=== PATIENT | female | born 1980 | race Hispanic/Latino ===

== ENCOUNTER 2016-11-27 14:29 | Emergency (ER) | payer SELFPAY ==
[2016-11-27] MEDS ORDERED: TORADOL IV ONE (15:48)
[2016-11-27 16:19] LABS: White Blood Count 20.7 K/mm3 (4.5-11.0)
[2016-11-27 16:20] LABS: Hematocrit 42.9 % (30.3-42.9); Hemoglobin 14.6 gm/dl (10.1-14.3); Mean Corpuscular HGB Conc 34 % (30-34); Mean Corpuscular Hemoglobin 30 pg (28-32); Mean Corpuscular Volume 87 fl (79-97); Platelet Count 294 K/mm3 (140-440); Red Blood Count 4.92 M/mm3 (3.65-5.03); Red Cell Distribution Width 12.7 % (13.2-15.2)
[2016-11-27 16:55] LABS: Basophils % (Manual) 0 % (0.0-1.8); Blastocytes % (Manual) 0 %; Eosinophils % (Manual) 0 % (0.0-4.3)
[2016-11-27 16:56] LABS: Anisocytosis Few; Diff Status Complete
[2016-11-27 17:21] LABS: Alanine Aminotransferase 45 units/L (7-56); Albumin 4.1 g/dL (3.9-5); Albumin/Globulin Ratio 1.2 %; Alkaline Phosphatase 117 units/L (35-129); Anion Gap 21 mmol/L; Blood Urea Nitrogen 6 mg/dL (7-17); Calcium 9.2 mg/dL (8.4-10.2); Carbon Dioxide 23 mmol/L (22-30); Chloride 97.4 mmol/L (98-107); Creatine Kinase 96 units/L (30-135); Glucose 145 mg/dL (65-100); Lipase 25 units/L (13-60); Potassium 3.8 mmol/L (3.6-5.0); Sodium 138 mmol/L (137-145); Total Protein 7.4 g/dL (6.3-8.2)
[2016-11-27 17:22] LABS: Creatine Kinase MB < 1.0 ng/mL (0.0-4.0)
[2016-11-27 19:56] LABS: Bacteria,Urine 1+ /HPF (Negative); Bilirubin,Urine NEG (Negative); Blood,Urine SM (Negative); Ketones,Urine NEG (Negative); Leukocyte Esterase,Urine SM (Negative); Mucus,Urine FEW /HPF; Nitrite,Urine NEG (Negative); Protein,Urine <15 mg/dL mg/dL (Negative); Urobilinogen,Urine < 2.0 mg/dL (<2.0); WBC,Urine < 1.0 /HPF (0.0-6.0)
[2016-11-27] MEDS ORDERED: DILAUDID IV ONE (20:59)
[2016-11-27] MEDS ORDERED: ROCEPHIN/NS 1 GM/50 ML 1 GM/50 ML BAG IV ONE (20:59)
[2016-11-27] MEDS ORDERED: NACL 0.9% 1000 ML 2,000 ML IV ONE (20:59)
[2016-11-27] MEDS ORDERED: TYLENOL PO ONE (21:00)
--- NOTE | 2016-11-27 21:01 | Emergency Department Report ---
ED General Adult HPI - General Chief complaint: Abdominal Pain Stated complaint: BACK/KIDNEY PAIN Time Seen by Provider: 11/27/16 20:51 Source: patient, RN notes reviewed Mode of arrival: Ambulatory Limitations: No Limitations - History of Present Illness Initial comments: This is a 36-year-old female. She is previously unknown to me. She does not have a local primary care doctor. Past history includes cholecystectomy and nephrolithiasis. She does not have a private urologist specialist. The patient presents to the ER complaining of lower back pain, and flank pain, positive fever at home, no nausea or vomiting, mild dysuria, mild sensation of incomplete voiding. There is no bladder or bowel retention or incontinence. There is no saddle anesthesia. There is no IV drug use. The pain is constant. It worsens with palpation. It decreases with rest. -: Gradual Location: back Radiation: extremity Severity scale (0 -10): 8 Quality: aching Consistency: constant Improves with: rest Worsens with: movement Associated Symptoms: fever/chills, loss of appetite, malaise, weakness - Related Data Previous Rx's Medication Instructions Recorded Last Taken Type Omeprazole [Prilosec] 20 mg PO QDAY #30 capsule. 03/25/13 Unknown Rx Dicyclomine [Bentyl] 10 mg PO QID PRN #20 capsule 11/27/16 Unknown Rx Levofloxacin [Levaquin TAB] 500 mg PO BID #10 tablet 11/27/16 Unknown Rx Metoclopramide [Reglan] 10 mg PO QID PRN #30 tablet 11/27/16 Unknown Rx metroNIDAZOLE [Flagyl] 500 mg PO Q8HR #15 tablet 11/27/16 Unknown Rx Allergies Allergy/AdvReac Type Severity Reaction Status Date / Time No Known Allergies Allergy Unverified 03/24/13 21:53 ED Review of Systems ROS: Stated complaint: BACK/KIDNEY PAIN Other details as noted in HPI Constitutional: malaise Eyes: denies: vision change ENT: denies: epistaxis Respiratory: denies: cough Cardiovascular: denies: chest pain Gastrointestinal: as per HPI Genitourinary: as per HPI Musculoskeletal: back pain Skin: denies: lesions Neurological: weakness Psychiatric: anxiety ED Past Medical Hx - Past Medical History Previous Medical History?: No - Surgical History Past Surgical History?: Yes Hx Cholecystectomy: Yes Additional Surgical History: Cholecysectomy; hx kidneystones - Social History Smoking Status: Current Every Day Smoker Substance Use Type: None - Medications Home Medications: Home Medications Medication Instructions Recorded Confirmed Last Taken Type Omeprazole [Prilosec] 20 mg PO QDAY #30 capsule. 03/25/13 Unknown Rx Dicyclomine [Bentyl] 10 mg PO QID PRN #20 capsule 11/27/16 Unknown Rx Levofloxacin [Levaquin TAB] 500 mg PO BID #10 tablet 11/27/16 Unknown Rx Metoclopramide [Reglan] 10 mg PO QID PRN #30 tablet 11/27/16 Unknown Rx metroNIDAZOLE [Flagyl] 500 mg PO Q8HR #15 tablet 11/27/16 Unknown Rx ED Physical Exam - General Limitations: No Limitations General appearance: alert, in no apparent distress, anxious - Head Head exam: Present: atraumatic, normocephalic - Eye Eye exam: Present: normal appearance. Absent: nystagmus - ENT ENT exam: Present: normal exam, normal orophraynx, mucous membranes dry, normal external ear exam - Neck Neck exam: Present: normal inspection, full ROM. Absent: tenderness, meningismus - Respiratory Respiratory exam: Present: normal lung sounds bilaterally. Absent: respiratory distress, wheezes, rales, rhonchi, stridor, chest wall tenderness - Cardiovascular Cardiovascular Exam: Present: normal rhythm, tachycardia, normal heart sounds. Absent: systolic murmur, diastolic murmur, rubs, gallop - GI/Abdominal GI/Abdominal exam: Present: soft, normal bowel sounds. Absent: distended, tenderness, guarding, rebound, rigid, pulsatile mass - External exam: Present: normal external exam Speculum exam: Present: normal speculum exam. Absent: cervical discharge, vaginal bleeding Bi-manual exam: Present: normal bi-manual exam, other (during the gynecologic examination, I'm escorted by nurse Mark Mario). Absent: cervical motion tendernes, adnexal tenderness, adnexal mass, uterine enlargement, uterine tenderness - Extremities Exam Extremities exam: Present: normal inspection, full ROM, normal capillary refill. Absent: tenderness, pedal edema, joint swelling, calf tenderness - Back Exam Back exam: Present: normal inspection, full ROM, CVA tenderness (R), CVA tenderness (L), paraspinal tenderness. Absent: tenderness - Neurological Exam Neurological exam: Present: alert, oriented X3, other (Extraocular movements intact. Tongue midline. No facial droop. Facial sensation intact to light touch in the V1, V2, V3 distribution bilaterally. 5 and 5 strength in 4 extremities.. Sensation is intact to light touch in 4 extremities.). Absent: motor sensory deficit - Psychiatric Psychiatric exam: Present: normal affect, normal mood - Skin Skin exam: Present: warm, dry, intact, normal color. Absent: rash ED Course Vital Signs 11/27/16 11/27/16 11/27/16 15:43 15:50 20:40 Temperature 99.6 F Pulse Rate 96 H 120 H Respiratory 16 16 Rate Blood Pressure 135/76 Blood Pressure [Left] O2 Sat by Pulse 100 Oximetry 11/27/16 11/27/16 11/27/16 21:00 21:02 21:14 Temperature 98.3 F Pulse Rate 118 H 117 H 19 L Respiratory 19 15 17 Rate Blood Pressure 93/47 93/47 Blood Pressure 93/47 [Left] O2 Sat by Pulse 99 99 99 Oximetry 11/27/16 11/27/16 11/27/16 22:32 22:46 23:00 Temperature Pulse Rate 101 H Respiratory 12 17 20 Rate Blood Pressure 93/47 91/51 Blood Pressure [Left] O2 Sat by Pulse 96 95 Oximetry 11/27/16 11/27/16 11/28/16 23:09 23:17 00:00 Temperature Pulse Rate 101 H Respiratory 12 16 20 Rate Blood Pressure 92/43 Blood Pressure 101/48 [Left] O2 Sat by Pulse 100 Oximetry - Reevaluation(s) Reevaluation #1: 11/27/16 22:25 Differential diagnosis: Pyelonephritis, renal abscess, infected stone, myositis Assessment and plan: 36-year-old female with low-grade temperature, tachycardia , leukocytosis, borderline hypotension. Suspect renal infection. She will be treated along with sepsis pathway, she will be given normal saline at 30 mL/kg, lactic acid is ordered, urinalysis and urine cultures ordered, patient loaded empirically with ceftriaxone. Reevaluation #2: 11/27/16 23:49 CT scan demonstrates nonspecific jejunitis. Abdomen soft on repeat examination. Tachycardia resolved. Hypotension resolved. Lactic acid negative. Mild to moderate constipation is suggested. Patient tolerating liquid feeds. She will be discharged with pain medication, nausea medication, instructions to modify diet and lifestyle, given leukocytosis , initial tachycardia, findings of jejunitis, she will be discharged with a short course of antibiotics. Return precautions are reviewed. She'll be instructed to follow with outpatient gastroenterology or primary care. ED Medical Decision Making - Lab Data Result diagrams: 11/27/16 15:53 11/27/16 16:44 Vital Signs 11/27/16 11/27/16 11/27/16 15:43 15:50 20:40 Temperature 99.6 F Pulse Rate 96 H 120 H Respiratory 16 16 Rate Blood Pressure 135/76 Blood Pressure [Left] O2 Sat by Pulse 100 Oximetry 11/27/16 11/27/16 21:00 21:14 Temperature 98.3 F Pulse Rate 118 H 19 L Respiratory 19 17 Rate Blood Pressure 93/47 Blood Pressure 93/47 [Left] O2 Sat by Pulse 99 99 Oximetry Labs 11/27/16 11/27/16 11/27/16 15:53 15:53 16:44 WBC 20.7 H RBC 4.92 Hgb 14.6 H Hct 42.9 MCV 87 MCH 30 MCHC 34 RDW 12.7 L Plt Count 294 Add Manual Diff Complete Total Counted 100 Seg Neuts % (Manual) 93.0 H Band Neutrophils % 0 Lymphocytes % (Manual) 5.0 L Reactive Lymphs % (Man) 0 Monocytes % (Manual) 2.0 Eosinophils % (Manual) 0 Basophils % (Manual) 0 Metamyelocytes % 0 Myelocytes % 0 Promyelocytes % 0 Blast Cells % 0 Nucleated RBC % Not Reportable Seg Neutrophils # Man 19.3 H Band Neutrophils # 0.0 Lymphocytes # (Manual) 1.0 L Abs React Lymphs (Man) 0.0 Monocytes # (Manual) 0.4 Eosinophils # (Manual) 0.0 Basophils # (Manual) 0.0 Metamyelocytes # 0.0 Myelocytes # 0.0 Promyelocytes # 0.0 Blast Cells # 0.0 WBC Morphology Not Reportable Hypersegmented Neuts Not Reportable Hyposegmented Neuts Not Reportable Hypogranular Neuts Not Reportable Smudge Cells Not Reportable Toxic Granulation Not Reportable Toxic Vacuolation Not Reportable Dohle Bodies Not Reportable Pelger-Huet Anomaly Not Reportable Maria Luisa Rods Not Reportable Platelet Estimate Appears normal Clumped Platelets Not Reportable Plt Clumps, EDTA Not Reportable Large Platelets Not Reportable Giant Platelets Not Reportable Platelet Satelliting Not Reportable Plt Morphology Comment Not Reportable RBC Morphology Not Reportable Dimorphic RBCs Not Reportable Polychromasia Not Reportable Hypochromasia Not Reportable Poikilocytosis Not Reportable Anisocytosis Few Microcytosis Not Reportable Macrocytosis Not Reportable Spherocytes Not Reportable Pappenheimer Bodies Not Reportable Sickle Cells Not Reportable Target Cells Not Reportable Tear Drop Cells Not Reportable Ovalocytes Not Reportable Helmet Cells Not Reportable Alexander-[place] Bodies Not Reportable Frost Rings Not Reportable Chel Cells Not Reportable Bite Cells Not Reportable Crenated Cell Not Reportable Elliptocytes Not Reportable Acanthocytes (Spur) Not Reportable Rouleaux Not Reportable Hemoglobin C Crystals Not Reportable Schistocytes Not Reportable Malaria parasites Not Reportable Marcelo Bodies Not Reportable Hem Pathologist Commnt No Sodium 138 Potassium 3.8 Chloride 97.4 L Carbon Dioxide 23 Anion Gap 21 BUN 6 L Creatinine 0.5 L Estimated GFR > 60 BUN/Creatinine Ratio 12.00 Glucose 145 H Calcium 9.2 Total Bilirubin 0.30 AST 34 ALT 45 Alkaline Phosphatase 117 Total Creatine Kinase 96 CK-MB (CK-2) < 1.0 CK-MB (CK-2) Rel Index 1.0 Total Protein 7.4 Albumin 4.1 Albumin/Globulin Ratio 1.2 Lipase 25 HCG, Qual Negative Urine Color Urine Turbidity Urine pH Ur Specific Marine Urine Protein Urine Glucose (UA) Urine Ketones Urine Blood Urine Nitrite Urine Bilirubin Urine Urobilinogen Ur Leukocyte Esterase Urine WBC (Auto) Urine RBC (Auto) U Epithel Cells (Auto) Urine Bacteria (Auto) Urine Mucus 11/27/16 11/27/16 19:29 21:15 WBC RBC Hgb Hct MCV MCH MCHC RDW Plt Count Add Manual Diff Total Counted Seg Neuts % (Manual) Band Neutrophils % Lymphocytes % (Manual) Reactive Lymphs % (Man) Monocytes % (Manual) Eosinophils % (Manual) Basophils % (Manual) Metamyelocytes % Myelocytes % Promyelocytes % Blast Cells % Nucleated RBC % Seg Neutrophils # Man Band Neutrophils # Lymphocytes # (Manual) Abs React Lymphs (Man) Monocytes # (Manual) Eosinophils # (Manual) Basophils # (Manual) Metamyelocytes # Myelocytes # Promyelocytes # Blast Cells # WBC Morphology Hypersegmented Neuts Hyposegmented Neuts Hypogranular Neuts Smudge Cells Toxic Granulation Toxic Vacuolation Dohle Bodies Pelger-Huet Anomaly Maria Luisa Rods Platelet Estimate Clumped Platelets Plt Clumps, EDTA Large Platelets Giant Platelets Platelet Satelliting Plt Morphology Comment RBC Morphology Dimorphic RBCs Polychromasia Hypochromasia Poikilocytosis Anisocytosis Microcytosis Macrocytosis Spherocytes Pappenheimer Bodies Sickle Cells Target Cells Tear Drop Cells Ovalocytes Helmet Cells Alexander-[place]om[place] Bodies Frost Rings [place] Cells Bite Cells Crenated Cell Elliptocytes Acanthocytes (Spur) Rouleaux Hemoglobin C Crystals Schistocytes Malaria parasites Marcelo Bodies Hem Pathologist Commnt Sodium Potassium Chloride Carbon Dioxide Anion Gap BUN Creatinine Estimated GFR BUN/Creatinine Ratio Glucose Calcium Total Bilirubin AST ALT Alkaline Phosphatase Total Creatine Kinase 80 CK-MB (CK-2) CK-MB (CK-2) Rel Index Total Protein Albumin Albumin/Globulin Ratio Lipase HCG, Qual Urine Color Straw Urine Turbidity Clear Urine pH 7.0 Ur Specific Marine 1.005 Urine Protein <15 mg/dl Urine Glucose (UA) Neg Urine Ketones Neg Urine Blood Sm Urine Nitrite Neg Urine Bilirubin Neg Urine Urobilinogen < 2.0 Ur Leukocyte Esterase Sm Urine WBC (Auto) < 1.0 Urine RBC (Auto) 2.0 U Epithel Cells (Auto) 4.0 Urine Bacteria (Auto) 1+ Urine Mucus Few - Radiology Data Radiology results: pending Critical care attestation.: If time is entered above; I have spent that time in minutes in the direct care of this critically ill patient, excluding procedure time. ED Disposition Clinical Impression: Abdominal pain, Back pain Disposition: TO HOME OR SELFCARE Is pt being admited?: No Does the pt Need Aspirin: No Condition: Stable Instructions: Abdominal Pain (ED) Additional Instructions: Take the pain medication, nausea medication, antibiotics as directed. Do not consume alcohol for the next week. Follow up with a primary care doctor or delimber operator within the next 7-[address] Wale Krueger is a local primary care doctor. Dr. Mondragon is a local primary care doctor. Dr. Benoit is a local delimber operator. Return to the ER right away with new pain, worsened pain, migration of pain, fevers, chills, confusion, intractable nausea or vomiting, inability to tolerate liquid feeds. Prescriptions: Dicyclomine [Bentyl] 10 mg PO QID PRN #20 capsule PRN Reason: Pain Levofloxacin [Levaquin TAB] 500 mg PO BID #10 tablet Metoclopramide [Reglan] 10 mg PO QID PRN #30 tablet PRN Reason: Nausea metroNIDAZOLE [Flagyl] 500 mg PO Q8HR #15 tablet Referrals: PRIMARY CARE, [Primary Care Provider] - 3-5 Days WALE KRUEGER MD [Staff Physician] - 3-5 Days QI BENOIT MD [Staff Physician] - 3-5 Days RYAN MONDRAGON MD [Staff Physician] - 3-5 Days
[2016-11-27] MEDS ORDERED: NACL 0.9% 1000 ML 1,000 ML IV ONE (22:26)
--- NOTE | 2016-11-27 23:02 | Cat Scan Report ---
FINAL REPORT PROCEDURE: CT ABDOMEN PELVIS W CON TECHNIQUE: Computerized axial tomography of the abdomen and pelvis was performed after the IV injection of iodinated nonionic contrast. HISTORY: back pain fever COMPARISON: No prior studies are available for comparison. FINDINGS: Spleen is top normal limits in size. Liver is top normal limits in size. There is mild intrahepatic biliary ductal dilation with normal size common bile duct. Patient has had prior cholecystectomy which likely accounts for this finding. Pancreas appears normal. The adrenal glands and abdominal aorta are normal in size. No renal abnormality is seen. No bladder abnormality is seen. There is a probable 2.6 cm right ovarian cyst. Mild free fluid in the pelvis is likely physiologic. There mild to moderate constipation in the ascending and transverse colon. Normal appendix is seen. No small bowel dilation is seen. There is questionable mild wall thickening in the jejunum with reactive lymph nodes in the small bowel mesentery. Consideration should be given to jejunitis. IMPRESSION: Possible changes of jejunitis are seen. There is mild to moderate constipation in the ascending and transverse colon. 2.6 cm right ovarian cyst is seen.
[2016-11-28 00:41] VITALS: BP 92/43
== END 2016-11-28 00:41 | disposition home or self-care (01) ==
LOC: ED 14:29
DX: M54.5 Low back pain (principal); R10.9 Unspecified abdominal pain; R50.9 Fever, unspecified; R30.0 Dysuria; F17.210 Nicotine dependence, cigarettes, uncomplicated
CPT/HCPCS: 36415; 74177; 80053; 81001; 82140; 82550; 82553; 83690; 84703; 85007; 85025; 87086; 87210; 87591; 96361; 96365; 96375; 99285; J0696; J1170; J1885; J7030; Q9967